=== PATIENT | female | born 1935 | race Caucasian/White ===

== ENCOUNTER 2018-02-15 11:43 | Outpatient (CLI) | payer MEDICARE ==
[~2018-02-15 11:43] MED LIST: Iopamidol 370 76% 100 ML VIAL ONE
--- NOTE | 2018-02-15 14:20 | CT ---
CT ABDOMEN AND PELVIS: 02/15/2018 HISTORY: Right-sided epigastric pain for 1-2 weeks. Nausea and diarrhea with weakness. COMPARISON: None. TECHNIQUE: Serial axial CT imaging at 5 mm intervals, from the lung bases through the pubic symphysis, with IV a nd oral contrast. Coronal reformatted imaging obtained. FINDINGS: The visualized lung bases are unremarkable. No free intraperitoneal air or fluid. The gallbladder i s surgically absent. The liver, spleen, and adrenal glands appear grossly unremarkable. There is a subcentimeter, round, hypodense lesion within the upper abdomen, just to the left of midli ne, measuring 9 mm, too small to characterize. This abuts the posterior wall of the stomach and is i nseparable from the pancreas. This is felt to most likely represent a nonspecific 9 mm low density p ancreatic lesion. The kidneys appear grossly unremarkable. The uterus is surgically absent. There is prominent stool throughout the colon. No evidence for bowel, inflammatory change, or obstru ction. There is atherosclerotic calcification of the abdominal aorta and its branches. There is a small sli ding type hiatal hernia. There is no lymphadenopathy evident within the abdomen/pelvis. There is multilevel lower lumbar spine degenerative change, primarily affecting the facet joints. Th ere is degenerative change involving the bilateral sacroiliac joints. IMPRESSION: 1. Incidentally noted 9-10 mm hypodense lesion within the ventral aspect of the pancreatic body. Th is suggests a small, cystic lesion, which can be seen on the basis of a small cystic neoplasm. Recom mend a follow-up CT examination in three months. 2. No acute findings are seen. Numerous additional incidental findings are noted. CODE T POS: [facility]
== END 2018-02-15 11:44 | disposition home or self-care (01) ==
LOC: CT 11:43
PROVIDERS: ATTEND Family Medicine
DX: R10.9 Unspecified abdominal pain (principal)
CPT/HCPCS: 74177; 82565

== ENCOUNTER 2018-10-23 09:36 | Outpatient (CLI) | payer MEDICARE | END 2018-10-23 09:37 | disposition home or self-care (01) | LOC: BICMAMMO 09:36 | PROVIDERS: ATTEND Family Medicine | DX: Z12.31 Encounter for screening mammogram for malignant neoplasm of breast (principal); Z80.3 Family history of malignant neoplasm of breast | CPT/HCPCS: 77063; 77067 ==

== ENCOUNTER 2018-11-01 14:28 | Outpatient (CLI) | payer MEDICARE | END 2018-11-01 14:29 | disposition home or self-care (01) | LOC: BICMAMMO 14:28 | PROVIDERS: ATTEND Family Medicine | DX: N63.20 Unspecified lump in the left breast, unspecified quadrant (principal); Z80.3 Family history of malignant neoplasm of breast | CPT/HCPCS: 77065; G0279 ==

== ENCOUNTER 2019-02-01 13:13 | Emergency (ER) | payer MEDICARE ==
[2019-02-01 13:38] LABS: #Basophils 0.1 thou/uL (0.0-0.2); #Eosinphils 0.1 thou/uL (0.0-0.7); #Lymphocytes 1.8 thou/uL (1.20-3.40); #Monocytes 0.7 thou/uL (0.11-0.59); #Neutrophils 3.5 thou/uL (1.40-6.50); %Basophils 0.9 % (0.0-1.0); %Eosinophils 1.8 % (0.0-10.0); %Lymphocytes 28.6 % (21.0-51.0); %Monocytes 11.5 % (0.0-10.0); %Neutrophils 57.2 % (42.0-75.0); Hemoglobin 13.4 g/dL (12.0-16.0); Mean Corpuscular HGB CONC 32.9 g/dL (32.0-36.0); Mean Corpuscular Volume 94.3 fL (78.0-98.0); Platelet Count 287 thou/uL (130-400); RBC Distribution Width 11.9 % (11.5-14.5); Red Blood Cell (RBC) Count 4.31 mill/uL (4.20-5.40); White Blood Cell (WBC) Count 6.1 thou/uL (4.8-10.8)
[2019-02-01 13:55] LABS: ALT (SGPT) 19 U/L (8-55); AST (SGOT) 27 U/L (5-34); Albumin 4.5 g/dL (3.4-4.8); Alkaline Phosphatase 46 U/L (40-150); Anion Gap 15 mmol/L (10-20); BUN (Urea Nitrogen) 14 mg/dL (9.8-20.1); Bilirubin, Total 0.3 mg/dL (0.2-1.2); CK (CPK) 142 U/L (29-168); Calc. Creatinine Clearance 0 mL/min (70-130); Carbon Dioxide 22 mmol/L (23-31); Chloride 104 mmol/L (98-107); Estimated GFR-MDRD 58; Glucose 138 mg/dL (83-110); Potassium 4.3 mmol/L (3.5-5.1); Protein, Total 7.5 g/dL (6.0-8.3); Sodium 137 mmol/L (136-145)
--- NOTE | 2019-02-01 14:26 | RAD ---
RADIOGRAPH CHEST 1 VIEW: HISTORY: An 83-year-old female with chest pain. FINDINGS: There are no air space densities, pulmonary edema, pneumothorax, or cardiomegaly. The lateral costop hrenic angles are sharp. IMPRESSION: No acute cardiopulmonary findings. jn [] POS: [facility]
== END 2019-02-01 16:15 | disposition home or self-care (01) ==
LOC: ERS 13:13
DX: R19.7 Diarrhea, unspecified (principal); E03.9 Hypothyroidism, unspecified; I10 Essential (primary) hypertension; Z79.82 Long term (current) use of aspirin; Z79.899 Other long term (current) drug therapy
CPT/HCPCS: 71045; 80053; 82550; 84484; 85025; 93005; 94760

== ENCOUNTER 2019-04-16 09:19 | Outpatient (CLI) | payer MEDICARE ==
[2019-04-16] MEDS ORDERED: ISOVUE-370 76%-LOCM 1 ML ONE (11:44)
--- NOTE | 2019-04-16 12:02 | CT ---
CT ABDOMEN WITH AND WITHOUT IV CONTRAST AND CT PELVIS WITH IV CONTRAST: HISTORY: Pancreatic mass. COMPARISON: 02/15/2018. FINDINGS: The lung bases are clear. The patient is post cholecystectomy, appendectomy, and hysterectomy. The liver, spleen, adrenal glands, and left kidney are normal. There is a tiny calcification in the righ t posterior renal cortex. No hydroureteral nephrosis is seen. The small subcentimeter low-density lesion in the anterior aspect of the body of the pancreas is stab le. No free air, free fluid, or lymphadenopathy is seen. There are vascular calcifications without evide nce of aneurysmal dilatation of the abdominal aorta. Small bowel loops are not abnormally dilated. There are degenerative changes in the spine. IMPRESSION: Stable subcentimeter hypodense lesion in the anterior aspect of the pancreatic body. POS: [facility]
== END 2019-04-16 09:20 | disposition home or self-care (01) ==
LOC: BICCT 09:19
PROVIDERS: ATTEND Family Medicine
DX: K86.9 Disease of pancreas, unspecified (principal)
CPT/HCPCS: 74178; 82565; Q9966

== ENCOUNTER 2019-04-25 13:00 | Outpatient (CLI) | payer MEDICARE ==
--- NOTE | 2019-04-25 14:16 | MMO ---
Left Breast MAMMO Unilat Diag DDI LT+ARNOLD. CLINICAL HISTORY: Patient is 83 years old and is seen for diagnostic exam and lump or thickening in the upper-outer region of the left breast. The patient has the following family history of breast cancer: paternal grandmother. The patient has no personal history of cancer. The patient has a history of right Ultrasound Guided Core Biopsy in November, - benign, left Excisional Biopsy in 2007 - benign and bilateral Cyst Aspiration in [id number] - benign. VIEWS: The views performed were: left craniocaudal with tomosynthesis; left mediolateral oblique with tomosynthesis; and left mediolateral. FILMS COMPARED: The present examination has been compared to prior imaging studies performed at [facility] on 10/12/2017, 10/23/2018, 11/01/2018 and 04/25/2019. MAMMOGRAM FINDINGS: The breast is heterogeneously dense, which could obscure a lesion on mammography. There is an asymmetry seen in the outer region of the left breast. This corresponds to the region of palpable concern. Sonography demonstrates an irregular hypoechoic mass. IMPRESSION: ASYMMETRY IN THE LEFT BREAST IS SUSPICIOUS. AN ULTRASOUND-GUIDED BREAST BIOPSY IS RECOMMENDED. RESULTS AND RECOMMENDATIONS DISCUSSED WITH THE PATIENT AND QUESTIONS ANSWERED. THE RESULTS OF THIS EXAM WERE SENT TO THE PATIENT. ACR BI-RADS Category 4 - Suspicious abnormality - biopsy should be considered MAMMOGRAPHY NOTE: 1. A negative mammogram report should not delay a biopsy if a dominant of clinically suspicious mass is present. 2. Approximately 10% to 15% of breast cancers are not detected by mammography. 3. Adenosis and dense breasts may obscure an underlying neoplasm.
--- NOTE | 2019-04-25 15:58 | ULT ---
LIMITED LEFT BREAST ULTRASOUND: 04/25/19 PROVIDED CLINICAL HISTORY: Left breast palpable abnormality. FINDINGS: Limited sonographic interrogation of the left breast was performed in the region of palpable concern. There is an irregular lobulated hypoechoic mass at the 2 o'clock position of the left breast corres ponding to the area of palpable concern. This measures about 3 x 1.5 x 1.9 cm. A simple appearing cys t is also seen the 2:30 position of the left breast. IMPRESSION: BI-RADS 4: Suspicious Abnormality - Biopsy Should Be Considered Usually requires biopsy. Ultrasound guided biopsy is recommended. Findings and recommendations dis cussed with the patient and questions answered. POS: OFF
--- NOTE | 2019-04-28 08:22 | ULT ---
LIMITED LEFT BREAST ULTRASOUND: Date: 04/25/19 PROVIDED CLINICAL HISTORY: Left breast palpable abnormality. FINDINGS: Limited sonographic interrogation of the left breast was performed in the region of palpable concern. There is an irregular, lobulated, hypoechoic mass at the 2 o'clock position of the left breast, corre sponding to the area of palpable concern. This measures about 3.0 x 1.5 x 1.9 cm. A simple appearing cyst is also seen at the 2:30 position of the left breast. IMPRESSION: BIRADS Category 4 - Suspicious abnormality. Ultrasound guided biopsy is recommended. Findings and recommendations discussed with the patient and questions answered. POS: OFF
== END 2019-04-25 13:01 | disposition home or self-care (01) ==
LOC: BICMAMMO 13:00
PROVIDERS: ATTEND Family Medicine
DX: N63.21 Unspecified lump in the left breast, upper outer quadrant (principal); N64.89 Other specified disorders of breast
CPT/HCPCS: 76642; 77065; G0279

== ENCOUNTER → 2019-05-05 | Day surgery (SDC) | payer MEDICARE ==
--- NOTE | 2019-05-05 14:03 | ULT ---
ULTRASOUND GUIDED LEFT BREAST BIOPSY: DATE: 05/05/2019. PROVIDED CLINICAL HISTORY: Left breast mass. FINDINGS: Limited sonographic interrogation is performed of the left breast in the region of previously demonst rated left breast mass. The skin overlying this area was marked and prepped and raped in the usual s terile manner. The soft tissues were infiltrated with 1% buffered lidocaine. A small skin incision was made. Under continuous sonographic guidance, a core biopsy device was advanced adjacent to the m ass and 4 core samples were obtained. Subsequently, ultrasound guidance was utilized to deploy a bio psy clip marker adjacent to the mass. Coggon were withdrawn and hemostasis achieved. No immediate complications. IMPRESSION: Technically successful ultrasound-guided left breast biopsy. Please correlate with histology results to follow. POS: OFF
--- NOTE | 2019-05-05 15:10 | MMO ---
Left Breast MAMMO Unilat Diag DDI LT. CLINICAL HISTORY: Patient is 83 years old and is seen for diagnostic exam. The patient has the following family history of breast cancer: paternal grandmother. The patient has no personal history of cancer. The patient has a history of right Ultrasound Guided Core Biopsy in November, - benign, left Excisional Biopsy in 2007 - benign and bilateral Cyst Aspiration in [id number] - benign. VIEWS: The views performed were: left craniocaudal and left mediolateral oblique. FILMS COMPARED: The present examination has been compared to prior imaging studies performed at [facility] on 10/23/2018, 11/01/2018 and 04/25/2019. MAMMOGRAM FINDINGS: The breast is heterogeneously dense, which could obscure a lesion on mammography. There is a biopsy clip seen in the left breast. IMPRESSION: BIOPSY CLIP IN THE LEFT BREAST IS CONFIRMED UTILIZING POST PROCEDURE MAMMOGRAM. THE RESULTS OF THIS EXAM WERE SENT TO THE PATIENT. MAMMOGRAPHY NOTE: 1. A negative mammogram report should not delay a biopsy if a dominant of clinically suspicious mass is present. 2. Approximately 10% to 15% of breast cancers are not detected by mammography. 3. Adenosis and dense breasts may obscure an underlying neoplasm.
== END ==
LOC: BICULT 12:25
PROVIDERS: ATTEND Family Medicine
DX: C50.412 Malignant neoplasm of upper-outer quadrant of left female breast (principal)
CPT/HCPCS: 19083; 88305; 88341; 88342; 88361

== ENCOUNTER 2019-05-13 16:25 | Outpatient (CLI) | payer MEDICARE ==
--- NOTE | 2019-05-13 16:43 | RAD ---
EXAM: Chest PA and lateral: HISTORY: Malignant neoplasm of left breast. COMPARISON: 02/01/2019 FINDINGS: Heart: Normal cardiac silhouette Aorta: Atherosclerosis of the aortic knob Pulmonary vessels: Normal Costophrenic angles: Costophrenic angles are clear. Lungs: No consolidation or masses. Right changes of the lung parenchyma are noted. Pneumothorax: No pneumothorax Osseous structures: No osseous abnormalities IMPRESSION: No acute cardiopulmonary process. Atherosclerosis of the aorta.
== END 2019-05-13 16:26 | disposition home or self-care (01) ==
LOC: BICRAD 16:25
PROVIDERS: ATTEND Internal Medicine Medical Oncology
DX: C50.412 Malignant neoplasm of upper-outer quadrant of left female breast (principal); I70.0 Atherosclerosis of aorta
CPT/HCPCS: 71046; 80053; 82248; 83615; 84100; 84550; 85610

== ENCOUNTER 2019-05-22 09:19 | Outpatient (CLI) | payer MEDICARE ==
--- NOTE | 2019-05-22 10:26 | BD ---
DEXA BONE DENSITY STUDY: Date: 05/22/19 HISTORY: Thrombophilia. Osteoporosis screening. COMPARISON: None. FINDINGS: Lumbar Spine: BMD (g/cm2) L1 0.948 T-Score: -0.4 Z-Score: 2.1 L2 1.084 T-Score: 0.5 Z-Score: 3.3 L3 1.139 T-Score: 0.5 Z-Score: 3.4 L4 1.189 T-Score: 1.2 Z-Score: 4.2 L1-L4 1.089 T-Score: 0.4 Z-Score: 3.2 WHO Classification: Normal. Left Femoral Neck: 0.920 T-Score: 0.6 Z-Score: 3.1 Total Femur: 1.094 T-Score: 1.2 Z-Score: 3.5 WHO Classification: Normal. IMPRESSION: Normal bone mineral density. POS: CET
== END 2019-05-22 09:20 | disposition home or self-care (01) ==
LOC: BICMAMMO 09:19
PROVIDERS: ATTEND Internal Medicine Medical Oncology
DX: Z13.820 Encounter for screening for osteoporosis (principal); C50.919 Malignant neoplasm of unspecified site of unspecified female breast; D68.69 Other thrombophilia
CPT/HCPCS: 77080

== ENCOUNTER 2019-08-07 07:22 | Outpatient (CLI) | payer MEDICARE ==
--- NOTE | 2019-08-07 10:12 | MRI ---
BRAIN MRI WITH AND WITHOUT CONTRAST: DATE: 08/07/2019. COMPARISON: None. HISTORY: Double vision, history of breast cancer. TECHNIQUE: Multiplanar, multisequence MR imaging of the brain obtained with and without contrast. The study is performed using an orbits protocol. FINDINGS: The diffusion weighted imaging demonstrates no evidence for acute infarction. The imaged paranasal sinuses and mastoid air cells are well aerated. There are multiple subcentimete r foci of increased T2 and FLAIR signal within the periventricular deep and subcortical white matter, evidence of small vessel disease. There is normal symmetric signal intensity involving the optic nerves, the intraconal fat, and the ex traocular muscles bilaterally. The globes demonstrate symmetric normal structure, size, and signal i ntensity. There is no midline shift, mass effect, or ventricular enlargement. Regional bone marrow signal intensity is normal. The whole brain postcontrast imaging demonstrates no abnormal enhancement. Thin section fat saturated postcontrast imaging is obtained through the orbits in the axial and coron al plane. There is no abnormal enhancement involving the globes, optic nerves, extraocular musculatu re, or intraconal fat on either side. No mass lesion/mass effect is seen. IMPRESSION: No acute findings. Incidental findings as detailed above. POS: [facility]
== END 2019-08-07 07:23 | disposition home or self-care (01) ==
LOC: BICMRI 07:22
PROVIDERS: ATTEND Ophthalmology
DX: H53.2 Diplopia (principal)
CPT/HCPCS: 70553; 82565

== ENCOUNTER 2019-08-28 08:26 | Outpatient (CLI) | payer MEDICARE ==
--- NOTE | 2019-08-28 11:45 | ULT ---
ULTRASOUND RIGHT BREAST: HISTORY: Palpable pain. COMPARISON: Mammogram of same date. FINDINGS: There is no abnormality at the area of interest in the right breast. There is normal suspensory liga ment. IMPRESSION: BIRADS 2: Benign findings. POS: OFF
== END 2019-08-28 08:27 | disposition home or self-care (01) ==
LOC: BICMAMMO 08:26
PROVIDERS: ATTEND Family Medicine
DX: N63.10 Unspecified lump in the right breast, unspecified quadrant (principal)
CPT/HCPCS: 76642; 77065; G0279

== ENCOUNTER 2019-09-09 06:44 | Day surgery (SDC) | payer MEDICARE ==
[2019-09-08 12:56] VITALS: BMI 27.8
--- NOTE | 2019-09-09 08:12 | RAD ---
RADIOGRAPH CHEST 1 VIEW: DATE: 09/09/2019 HISTORY: 84-year-old female with chest pain FINDINGS: There are no airspace densities, pulmonary edema, pneumothorax, or cardiomegaly. The lateral costophr enic angles are sharp. IMPRESSION: No acute cardiopulmonary findings.
[2019-09-09] MEDS ORDERED: Ketorolac Tromethamine 30 MG/ML VIAL ONE (08:27)
[2019-09-09 08:28] LABS: #Basophils 0.1 thou/uL (0.0-0.2); #Eosinphils 0.2 thou/uL (0.0-0.7); #Lymphocytes 1.9 thou/uL (1.20-3.40); #Monocytes 0.8 thou/uL (0.11-0.59); %Basophils 1.1 % (0.0-1.0); %Eosinophils 3.6 % (0.0-10.0); %Lymphocytes 31.9 % (21.0-51.0); %Monocytes 13.2 % (0.0-10.0); %Neutrophils 50.2 % (42.0-75.0); Hemoglobin 13.4 g/dL (12.0-16.0); Mean Corpuscular HGB CONC 34.3 g/dL (32.0-36.0); Mean Corpuscular Hemoglobin 31.5 pg (27.0-31.0); Mean Corpuscular Volume 91.7 fL (78.0-98.0); Mean Platelet Volume 7.1 fL (7.4-10.4); Platelet Count 306 thou/uL (130-400); RBC Distribution Width 12.1 % (11.5-14.5); Red Blood Cell (RBC) Count 4.26 mill/uL (4.20-5.40); White Blood Cell (WBC) Count 5.9 thou/uL (4.8-10.8)
[2019-09-09 08:38] LABS: Anion Gap 14 mmol/L (10-20); BUN (Urea Nitrogen) 14 mg/dL (9.8-20.1); Calc. Creatinine Clearance 47 mL/min (70-130); Calcium 10.2 mg/dL (7.8-10.44); Carbon Dioxide 24 mmol/L (23-31); Chloride 105 mmol/L (98-107); Estimated GFR-MDRD 57; Glucose 114 mg/dL (83-110); Potassium 4.1 mmol/L (3.5-5.1); Sodium 139 mmol/L (136-145)
--- NOTE | 2019-09-09 09:17 | MMO ---
Mammographic guided needle localization left breast cancer HISTORY: Left breast cancer. FINDINGS: After explaining the procedure and answering all questions, the localization clip from rece nt biopsy was visualized. Sterile technique, buffered local anesthesia, mammographic guidance, and a superior approach were used to advance a 19-gauge [place] needle to lie immediately posterior to the localization clip. Guidewire was placed to hold position. Final images were obtained. Patient tolerated the procedure well and was transferred to day surgery in good condition. IMPRESSION: Technically successful mammographic guided biopsy left breast cancer.
[2019-09-09] MEDS ORDERED: Bupivacaine/Epinephrine 0.25% 30 ML VIAL ONE ×2 (09:31)
[2019-09-09] MEDS ORDERED: Fentanyl 100 MCG/2 ML VIAL ONE (09:44)
--- NOTE | 2019-09-09 11:11 | MMO ---
Surgical specimen mammography left breast HISTORY: Left breast cancer. FINDINGS: Mammographic evaluation of the surgical specimen obtained by Dr. Camacho shows the localiza tion clip, a portion of the localization wire, and the hyperdense mass. Vascular and punctate calcifications are also present. Findings were called to Dr. Camacho in the operating room at time of the exam.
[2019-09-09] MEDS ORDERED: Morphine 2 MG/ML SYRINGE SLOW IVP PRN (11:54)
[2019-09-09] MEDS ORDERED: hydrALAZINE 20 MG/ML VIAL SLOW IVP PRN (11:54)
[2019-09-09] MEDS ORDERED: HYDROcodone/Acetaminophen 7.5/325 mg Tablet PO PRN ×2 (11:54)
[2019-09-09] MEDS ORDERED: Dextrose 50% Abboject 50 ML SYRINGE SLOW IVP PRN (11:54)
[2019-09-09] MEDS ORDERED: Promethazine HCl 25 MG/ML VIAL IM PRN (11:54)
[2019-09-09] MEDS ORDERED: Dextrose 5% in Water 1,000 ML IV PRN (11:54)
[2019-09-09] MEDS ORDERED: Ondansetron PF 4 MG/2 ML Vial IVP PRN (11:54)
[2019-09-09] MEDS ORDERED: Lactated Ringer's 1,000 ML IV SCH (12:00)
[2019-09-09] MEDS ORDERED: cloNIDine 0.1 MG TAB PO SCH (21:00)
[2019-09-10] MEDS ORDERED: Levothyroxine Sodium 100 MCG TAB PO SCH (06:00)
[2019-09-10] MEDS ORDERED: Potassium Chloride 20 MEQ TAB PO SCH (09:00)
[2019-09-10] MEDS ORDERED: Anastrozole 1 MG TAB PO SCH (09:00)
[2019-09-10] MEDS ORDERED: Famotidine 20 MG TAB PO SCH (09:00)
[2019-09-10] MEDS ORDERED: Aspirin 81 mg Enteric Coated Tablet PO SCH (09:00)
--- NOTE | 2019-09-10 09:58 | OP ---
DATE OF PROCEDURE: 09/09/2019 PREOPERATIVE DIAGNOSIS: Left breast cancer. POSTOPERATIVE DIAGNOSIS: Left breast cancer. PROCEDURES PERFORMED: Left breast lumpectomy and axillary lymph node dissection. ANESTHESIA: General endotracheal. INDICATIONS: The patient is an 84-year-old white female. She had presented a few months ago with breast cancer in the lateral left breast at approximately the 9 o'clock radian. She had several enlarged lymph nodes identified at the time of her diagnosis. She underwent neoadjuvant therapy with Arimidex. She had significant resolution of the cancer within the left breast. The lymph nodes were much smaller, but still somewhat enlarged. She was taken to the operating room at this time for definitive surgery. She has opted for a lumpectomy, which I think could be safely performed. I was concerned that the area visualized on ultrasound may not completely represent that of the prior cancer and I therefore decided to have mammographic needle localization performed. I recommend an axillary node dissection as there were still several enlarged lymph nodes seen on ultrasound. DESCRIPTION OF OPERATION: Informed consent was obtained. The patient was taken to the operating room where general endotracheal anesthesia obtained with the patient in supine position. Left breast and axilla were prepped with ChloraPrep and draped in sterile fashion. The localizing needle entered the lateral left breast in a superior to inferior fashion passing through the area of approximately the 3 o'clock radian. I utilized ultrasound to miranda the path of the localizing needle as well as the area of the sonographic abnormality that I could still see. Utilizing this, I planned the incision and area of excision. A transverse incision was created in the left breast just above the 3 o'clock radian. Dissection was carried through skin and subcutaneous tissue. I first dissected superiorly to identify the localizing needle. The needle was removed and the wire was replaced to the incision. I dissected along the wire to the point that it was about 3.5 cm from the tip of the wire. At this juncture, I grasped the breast tissue with a couple of Allis clamps and carefully performed a wide excision around the localizing wire, obtaining substantial specimen both laterally and medially along the area of the previous malignancy. There was no evidence of visible or palpable disease at the at the margins of excision. The specimen was removed intact and oriented with sutures and passed off the field. By palpation, there was 1 additional nodule in the posterior margin. This was excised and submitted separately. Meticulous hemostasis was obtained within the wound. It was closed in layers with 3-0 and 4-0 Monocryl. Additional local anesthetic was infiltrated during closure. Attention was then turned to the axilla. A transverse axillary incision was created. Dissection was carried through skin and subcutaneous tissue. Flaps were again raised superiorly and inferiorly. Along the anterior aspect, I then dissected down the pectoralis muscle. I dissected superiorly along the lateral aspect of the pectoralis to identify the axillary vein. Along the inferior aspect of the axillary vein, careful dissection was carried out to identify the long thoracic nerve medially and the thoracodorsal nerve in the center. These were each identified and carefully preserved throughout the operation. The fatty and lymphatic tissue within the axilla were then swept inferiorly, dividing lymphatics as they were encountered using hemoclips. The axillary specimen was swept inferiorly and removed intact. Most of the dissection was carried out with sharp dissection, but electrocautery was utilized as well. The wound was copiously irrigated. Hemostasis was meticulously achieved. A #19 round fluted drain was placed up within the axilla and secured using 3-0 nylon suture. The wound was closed in layers with 3-0 and 4-0 Monocryl suture. Dermabond was placed externally. There were no complications. The patient tolerated the procedure well and was taken to recovery room in stable condition. Job ID: [id number]
== END 2019-09-09 16:25 | disposition home or self-care (01) ==
LOC: SDC 06:44
PROVIDERS: ATTEND Specialist
PROC: 0HBU0ZZ Excision of Left Breast, Open Approach (ICD-10-PCS; principal; 2019-09-09)
PROC: 07T60ZZ Resection of Left Axillary Lymphatic, Open Approach (ICD-10-PCS; 2019-09-09)
DX: C50.812 Malignant neoplasm of overlapping sites of left female breast (principal); R92.1 Mammographic calcification found on diagnostic imaging of breast; Z17.0 Estrogen receptor positive status [ER+]; Z79.82 Long term (current) use of aspirin; Z79.899 Other long term (current) drug therapy
CPT/HCPCS: 19281; 36415; 71045; 76098; 80048; 85025; 88307; 93005; 93010; J0131; J0690; J1885; J3010

== ENCOUNTER 2020-02-01 09:56 | Emergency (ER) | payer MEDICARE ==
[2020-02-01] MEDS ORDERED: Fentanyl 100 MCG/2 ML VIAL ONE (10:35)
[2020-02-01] MEDS ORDERED: Fleet Enema 133 ML BOT FS SCH (11:30)
== END 2020-02-01 12:54 | disposition home or self-care (01) ==
LOC: ERS 09:56
DX: K56.41 Fecal impaction (principal); E03.9 Hypothyroidism, unspecified; I10 Essential (primary) hypertension; F32.9 Major depressive disorder, single episode, unspecified; Z79.82 Long term (current) use of aspirin; Z79.899 Other long term (current) drug therapy
CPT/HCPCS: 96374; J3010

== ENCOUNTER 2020-10-14 07:57 | Outpatient (CLI) | payer MEDICARE ==
--- NOTE | 2020-10-14 08:46 | MMO ---
Bilateral MAMMO Bilat Diag DDI+ARNOLD. CLINICAL HISTORY: Patient is 85 years old and is seen for diagnostic exam. The patient has the following family history of breast cancer: paternal grandmother. 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 The patient has a history of left Ultrasound Guided Core Biopsy in April, - malignant, left Excisional Biopsy in April, - malignant, right Ultrasound Guided Core Biopsy in November, - benign, left Excisional Biopsy in 2007 - benign and bilateral Cyst Aspiration in [id number] - benign. VIEWS: The views performed were: bilateral craniocaudal with tomosynthesis; bilateral mediolateral oblique with tomosynthesis; bilateral mediolateral with tomosynthesis; and right exaggerated craniocaudal. FILMS COMPARED: The present examination has been compared to prior imaging studies performed at [facility] on 05/05/2019 and 08/28/2019. This study has been interpreted with the assistance of computer-aided detection. MAMMOGRAM FINDINGS: The breasts are heterogeneously dense, which could obscure a lesion on mammography. Finding 1: There is a new area of skin thickening and a new post operative change seen in the left breast. Finding 2: There are stable benign appearing calcifications seen in both breasts. There are also vascular calcifications. There are no suspicious masses, suspicious calcifications, or new areas of architectural distortion. IMPRESSION: THERE IS NO MAMMOGRAPHIC EVIDENCE OF MALIGNANCY. A ROUTINE FOLLOW-UP MAMMOGRAM IN 1 YEAR IS RECOMMENDED. THE RESULTS OF THIS EXAM WERE SENT TO THE PATIENT. ACR BI-RADS Category 2 - Benign finding MAMMOGRAPHY NOTE: 1. A negative mammogram report should not delay a biopsy if a dominant of clinically suspicious mass is present. 2. Approximately 10% to 15% of breast cancers are not detected by mammography. 3. Adenosis and dense breasts may obscure an underlying neoplasm. Reported by: OTIS LYONS MD Electonically Signed: [id number]
--- NOTE | 2020-10-14 10:42 | BD ---
DEXA SCAN: INDICATION: Postmenopausal osteoporosis screening. FINDINGS: Lumbar Spine: BMD (g/cm2) L1 0.910 T-Score: -0.7 Z-Score: not provided L2 1.071 T-Score: 0.4 Z-Score: not provided L3 1.260 T-Score: 1.6 Z-Score: not provided L4 1.047 T-Score: -0.1 Z-Score: not provided L1-L4 1.076 T-Score: 0.3 Z-Score: not provided Femoral Neck: 0.883 T-Score: 0.3 Z-Score: not provided Total Femur: 1.077 T-Score: 1.1 Z-Score: not provided The bone mineral density has declined 1.2% from the baseline dated 05/22/2019; however, they were diss imilar scan types. Impression: Based on the WHO criteria, the patient's bone mineral density is within normal limits. The patient i s at low risk for fracture. POS: [facility]
== END 2020-10-14 07:58 | disposition home or self-care (01) ==
LOC: BICMAMMO 07:57
PROVIDERS: ATTEND Internal Medicine Medical Oncology
DX: Z13.820 Encounter for screening for osteoporosis (principal); C50.412 Malignant neoplasm of upper-outer quadrant of left female breast; N95.8 Other specified menopausal and perimenopausal disorders
CPT/HCPCS: 77066; 77080; G0279

== ENCOUNTER 2021-01-04 09:56 | Outpatient (CLI) | payer MEDICARE ==
--- NOTE | 2021-01-04 10:39 | MMO ---
Right Breast MAMMO Unilat Diag DDI RT+ARNOLD. CLINICAL HISTORY: Patient is 85 years old and is seen for diagnostic exam. The patient has the following family history of breast cancer: paternal grandmother. 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 The patient has a history of left Ultrasound Guided Core Biopsy in April, - malignant, left Excisional Biopsy in April, - malignant, right Ultrasound Guided Core Biopsy in November, - benign, left Excisional Biopsy in 2007 - benign and bilateral Cyst Aspiration in [id number] - benign. VIEWS: The views performed were: right craniocaudal with tomosynthesis; right mediolateral oblique with tomosynthesis; and right mediolateral with tomosynthesis. FILMS COMPARED: The present examination has been compared to prior imaging studies performed at [facility] on 08/28/2019, 10/14/2020 and 01/04/2021. This study has been interpreted with the assistance of computer-aided detection. MAMMOGRAM FINDINGS: The breast is heterogeneously dense, which could obscure a lesion on mammography. There are benign appearing calcifications in the right breast. No mammographic or sonograhic abnormality is seen at the site of palpable concern in the right breast (5:00). There are no suspicious masses, suspicious calcifications, or new areas of architectural distortion. IMPRESSION: THERE IS NO MAMMOGRAPHIC EVIDENCE OF MALIGNANCY. A ROUTINE FOLLOW-UP MAMMOGRAM IN 1 YEAR IS RECOMMENDED. THE RESULTS OF THIS EXAM WERE SENT TO THE PATIENT. ACR BI-RADS Category 2 - Benign finding MAMMOGRAPHY NOTE: 1. A negative mammogram report should not delay a biopsy if a dominant of clinically suspicious mass is present. 2. Approximately 10% to 15% of breast cancers are not detected by mammography. 3. Adenosis and dense breasts may obscure an underlying neoplasm. Reported by: KAT ALEGRIA MD Electonically Signed: [id number]
--- NOTE | 2021-01-04 12:33 | ULT ---
RIGHT BREAST ULTRASOUND: HISTORY: Palpable abnormality at the 5 o'clock position of the right breast. The patient has a history of lef t-sided breast cancer. FINDINGS: Sonographic evaluation at the region of palpable concern demonstrates no abnormality at the 5 o'clock position, 6 cm from the nipple (site of palpable concern). Correlation was made with the mammogram of the same day. IMPRESSION: BIRADS 2. Benign findings. Routine mammographic screening is recommended. POS: OFF
== END 2021-01-04 09:57 | disposition home or self-care (01) ==
LOC: BICMAMMO 09:56
PROVIDERS: ATTEND Family Medicine
DX: N63.10 Unspecified lump in the right breast, unspecified quadrant (principal); R92.8 Other abnormal and inconclusive findings on diagnostic imaging of breast
CPT/HCPCS: 76642; 77065; G0279

== ENCOUNTER 2021-10-17 08:06 | Outpatient (CLI) | payer MEDICARE | END 2021-10-17 08:07 | disposition home or self-care (01) | LOC: BICMAMMO 08:06 | PROVIDERS: ATTEND Internal Medicine Medical Oncology | DX: Z13.820 Encounter for screening for osteoporosis (principal); Z85.3 Personal history of malignant neoplasm of breast; Z80.3 Family history of malignant neoplasm of breast | CPT/HCPCS: 77066; 77080; G0279 ==

== ENCOUNTER 2022-08-20 10:13 | Inpatient (IN) | payer MEDICARE ==
[~2022-08-20 10:13] MED LIST changes: -Iopamidol 370 76% 100 ML VIAL ONE; +Iopamidol-370 76% 500 ML 1 ML ONE
[2022-08-20] MEDS ORDERED: Diltiazem 125 MG/25 ML ONE (10:39)
[2022-08-20] MEDS ORDERED: Aspirin Chewable 81 MG TAB ONE (10:39)
[2022-08-20] MEDS ORDERED: Magnesium 2 GM/50 ML BAG (IN WATER) ONE (10:39)
[2022-08-20 10:57] LABS: #Basophils 0.1 thou/uL (0.0-0.2); #Eosinphils 0.4 thou/uL (0.0-0.7); #Lymphocytes 1.7 thou/uL (1.20-3.40); #Neutrophils 4.5 thou/uL (1.40-6.50); %Basophils 0.9 % (0.0-1.0); %Eosinophils 4.7 % (0.0-10.0); %Lymphocytes 22.4 % (21.0-51.0); %Monocytes 12.9 % (0.0-10.0); Hemoglobin 13.9 g/dL (12.0-16.0); Mean Corpuscular Hemoglobin 30.5 pg (27.0-31.0); Mean Corpuscular Volume 92.4 fL (78.0-98.0); Mean Platelet Volume 6.7 fL (7.4-10.4); Platelet Count 304 thou/uL (130-400); Red Blood Cell (RBC) Count 4.56 mill/uL (4.20-5.40); White Blood Cell (WBC) Count 7.6 thou/uL (4.8-10.8)
[2022-08-20 11:19] LABS: ALT (SGPT) 18 U/L (8-55); AST (SGOT) 34 U/L (5-34); Albumin 4.4 g/dL (3.4-4.8); Alkaline Phosphatase 54 U/L (40-110); Anion Gap 16 mmol/L (10-20); BUN (Urea Nitrogen) 18 mg/dL (9.8-20.1); Bilirubin, Total 0.4 mg/dL (0.2-1.2); CK (CPK) 184 U/L (29-168); Calc. Creatinine Clearance 0 mL/min (70-130); Calcium 10.2 mg/dL (7.8-10.44); Carbon Dioxide 24 mmol/L (23-31); Chloride 102 mmol/L (98-107); Estimated GFR 57; Globulin 3.3 g/dL (2.4-3.5); Glucose 127 mg/dL (83-110); Lipase 31 U/L (8-78); Potassium 4.5 mmol/L (3.5-5.1); Protein, Total 7.7 g/dL (5.8-8.1); Sodium 137 mmol/L (136-145)
[2022-08-20] MEDS ORDERED: Enoxaparin Sodium 60 MG/0.6 ML SYRINGE ONE (13:13)
[2022-08-20 13:28] LABS: Bilirubin Negative (Negative); Blood, Urine Negative (Negative); Clarity Clear (Clear); Glucose, Urine (Dipstick) Normal (Negative); Ketone, Urine Trace mg/dL (Negative); Leukocyte Negative Leu/uL (Negative); Nitrite Negative (Negative); Protein, Urine (Dipstick) Negative (Neg-Trace); Specific Gravity, Urine 1.017 (1.002-1.036); Urobilinogen Normal mg/dL (Less than 2)
[2022-08-20 13:55] LABS: Hemoglobin A1c 5.8 % (4.0-6.0)
[2022-08-20 14:07] LABS: Magnesium 2.6 mg/dL (1.6-2.6)
[2022-08-20 14:13] LABS: Troponin I Less than 0.010 ng/mL (< 0.028)
[2022-08-20] MEDS ORDERED: Ondansetron ODT 4 MG TAB SL PRN (15:15)
[2022-08-20] MEDS ORDERED: Ondansetron PF 4 MG/2 ML Vial IVP PRN (15:15)
[2022-08-20 15:29] VITALS: BMI 27.1
[2022-08-20 17:30] LABS: Troponin I Less than 0.010 ng/mL (< 0.028)
[2022-08-20] MEDS: Potassium Chloride 20 MEQ TAB PO SCH ×2 (17:38→20:55)
[2022-08-20] MEDS: Famotidine 20 MG TAB PO SCH (20:18)
[2022-08-20] MEDS: Losartan 25 MG TAB PO SCH (20:18)
[2022-08-20] MEDS: hydrALAZINE 20 MG/ML VIAL SLOW IVP PRN (20:18)
[2022-08-20] MEDS: Calcium Carbonate 600 MG TAB PO SCH (20:18)
[2022-08-20] MEDS: Acetaminophen 325 MG TAB PO PRN (20:24)
[2022-08-20] MEDS ORDERED: cloNIDine 0.1 MG TAB PO SCH (21:00)
[2022-08-20] MEDS ORDERED: Amiodarone 150 MG, Admixture Fee 1 EACH in Dextrose 5% in Water 100 ML IVPB SCH (22:30)
[2022-08-20] MEDS ORDERED: Amiodarone 450 MG in Dextrose 5% in Water 250 ML IVPB SCH (22:45)
[2022-08-20] MEDS ORDERED: Lactated Ringer's 500 ML IV SCH (23:00)
[2022-08-20] MEDS ORDERED: Diltiazem HCl 125 MG, Admixture Fee 1 EACH in Sodium Chloride 0.9% 100 ML IVPB SCH ×2 (23:00→23:30)
[2022-08-20] MEDS ORDERED: Melatonin 3 MG TAB PO SCH (23:00)
[2022-08-20] MEDS: Latanoprost 0.005% Ophth Soln 2.5 ml Bottle EA EYE SCH (23:44)
[2022-08-21 04:50] LABS: #Eosinphils 0.1 thou/uL (0.0-0.7); #Lymphocytes 1.4 thou/uL (1.20-3.40); #Monocytes 1.2 thou/uL (0.11-0.59); #Neutrophils 6.2 thou/uL (1.40-6.50); %Basophils 0.5 % (0.0-1.0); %Eosinophils 1.4 % (0.0-10.0); %Lymphocytes 15.3 % (21.0-51.0); %Monocytes 13.2 % (0.0-10.0); %Neutrophils 69.5 % (42.0-75.0); Hemoglobin 13.3 g/dL (12.0-16.0); Mean Corpuscular Hemoglobin 30.6 pg (27.0-31.0); Mean Corpuscular Volume 92.7 fL (78.0-98.0); Mean Platelet Volume 6.5 fL (7.4-10.4); Platelet Count 312 thou/uL (130-400); RBC Distribution Width 12.1 % (11.5-14.5); Red Blood Cell (RBC) Count 4.34 mill/uL (4.20-5.40); White Blood Cell (WBC) Count 8.9 thou/uL (4.8-10.8)
[2022-08-21 05:15] LABS: Anion Gap 12 mmol/L (10-20); BUN (Urea Nitrogen) 14 mg/dL (9.8-20.1); Calc. Creatinine Clearance 530 mL/min (70-130); Calcium 9.8 mg/dL (7.8-10.44); Carbon Dioxide 23 mmol/L (23-31); Cardiac Risk 2.6 (Less than 4.5); Chloride 107 mmol/L (98-107); Cholesterol 183 mg/dl (< 200 Desired); Estimated GFR 72; Glucose 116 mg/dL (83-110); HDL Cholesterol 71 mg/dL (>60 Neg Risk); LDL Cholesterol, Calculated 97 mg/dL; Potassium 4.1 mmol/L (3.5-5.1); Sodium 138 mmol/L (136-145); Triglycerides 73 mg/dL (Less than 150)
[2022-08-21] MEDS: Levothyroxine Sodium 100 MCG TAB PO SCH (05:48)
[2022-08-21] MEDS ORDERED: Enoxaparin Sodium 40 MG/0.4 ML SYRINGE SC SCH (09:00)
[2022-08-21] MEDS: Potassium Chloride 20 MEQ TAB PO SCH ×4 (09:04→20:42)
[2022-08-21] MEDS: Cyanocobalamin (Vitamin B-12) 1,000 MCG TAB PO SCH (09:04)
[2022-08-21] MEDS: Calcium Carbonate 600 MG TAB PO SCH ×2 (09:04→20:42)
[2022-08-21] MEDS: Aspirin 81 mg Enteric Coated Tablet PO SCH (09:05)
[2022-08-21] MEDS: cloNIDine 0.1 MG TAB PO SCH (09:05)
[2022-08-21] MEDS: Folic Acid 1 MG TAB PO SCH (09:05)
[2022-08-21] MEDS: Anastrozole 1 MG TAB PO SCH (09:06)
[2022-08-21] MEDS: Multivit, Therapeutic 1 TAB PO SCH (09:06)
[2022-08-21] MEDS ORDERED: Melatonin 3 MG TAB PO PRN (20:00)
[2022-08-21] MEDS: Losartan 25 MG TAB PO SCH (20:42)
[2022-08-21] MEDS: Famotidine 20 MG TAB PO SCH (20:43)
[2022-08-21] MEDS: Latanoprost 0.005% Ophth Soln 2.5 ml Bottle EA EYE SCH (22:24)
[2022-08-22 04:05] LABS: #Basophils 0.1 thou/uL (0.0-0.2); #Eosinphils 0.3 thou/uL (0.0-0.7); #Lymphocytes 1.7 thou/uL (1.20-3.40); #Monocytes 0.9 thou/uL (0.11-0.59); #Neutrophils 3.5 thou/uL (1.40-6.50); %Basophils 0.9 % (0.0-1.0); %Eosinophils 4.9 % (0.0-10.0); %Lymphocytes 26.6 % (21.0-51.0); %Monocytes 13.6 % (0.0-10.0); Hemoglobin 12.7 g/dL (12.0-16.0); Mean Corpuscular HGB CONC 32.4 g/dL (32.0-36.0); Mean Corpuscular Hemoglobin 30.3 pg (27.0-31.0); Mean Corpuscular Volume 93.5 fL (78.0-98.0); Mean Platelet Volume 6.8 fL (7.4-10.4); Platelet Count 295 thou/uL (130-400); RBC Distribution Width 12.1 % (11.5-14.5); Red Blood Cell (RBC) Count 4.21 mill/uL (4.20-5.40); White Blood Cell (WBC) Count 6.5 thou/uL (4.8-10.8)
[2022-08-22 04:21] LABS: Anion Gap 12 mmol/L (10-20); BUN (Urea Nitrogen) 16 mg/dL (9.8-20.1); Calc. Creatinine Clearance 56 mL/min (70-130); Calcium 9.8 mg/dL (7.8-10.44); Carbon Dioxide 23 mmol/L (23-31); Chloride 107 mmol/L (98-107); Estimated GFR 77; Glucose 111 mg/dL (83-110); Potassium 4.1 mmol/L (3.5-5.1); Sodium 138 mmol/L (136-145)
[2022-08-22] MEDS: hydrALAZINE 20 MG/ML VIAL SLOW IVP PRN ×2 (05:33→23:52)
[2022-08-22] MEDS: Levothyroxine Sodium 100 MCG TAB PO SCH (05:33)
[2022-08-22] MEDS ORDERED: Iopamidol 370 76% 50 ML VIAL FS ONE (09:05)
[2022-08-22] MEDS: Aspirin 81 mg Enteric Coated Tablet PO SCH (09:30)
[2022-08-22] MEDS: cloNIDine 0.1 MG TAB PO SCH (09:30)
[2022-08-22] MEDS: Anastrozole 1 MG TAB PO SCH (09:30)
[2022-08-22] MEDS: Folic Acid 1 MG TAB PO SCH (10:10)
[2022-08-22] MEDS: Multivit, Therapeutic 1 TAB PO SCH (10:10)
[2022-08-22] MEDS: Cyanocobalamin (Vitamin B-12) 1,000 MCG TAB PO SCH (10:10)
[2022-08-22] MEDS: Calcium Carbonate 600 MG TAB PO SCH ×2 (10:10→20:02)
[2022-08-22] MEDS: Potassium Chloride 20 MEQ TAB PO SCH ×4 (10:11→20:02)
[2022-08-22] MEDS ORDERED: Lidocaine 1% 50ML VIAL ONE (11:04)
[2022-08-22] MEDS ORDERED: Heparin 10,000 UNITS/ 10 ML VIAL ONE (11:04)
[2022-08-22] MEDS ORDERED: Propofol 1,000 MG/100 ML VIAL IV ONE (11:08)
[2022-08-22] MEDS ORDERED: fentaNYL Citrate/PF 100 MCG/2 ML SYRINGE ONE (11:09)
[2022-08-22] MEDS ORDERED: Phenylephrine 10 MG/ML VIAL ONE (11:17)
[2022-08-22] MEDS ORDERED: PROPOFOL 200 MG/20 ML VIAL ONE (11:17)
[2022-08-22] MEDS ORDERED: ePHEDrine 50 MG/ML VIAL ONE (11:17)
[2022-08-22] MEDS ORDERED: CEFAZOLIN 1 GM VIAL ONE ×2 (12:12→14:53)
[2022-08-22] MEDS ORDERED: Gentamicin 80 MG/2 ML VIAL ONE (12:12)
[2022-08-22] MEDS: Latanoprost 0.005% Ophth Soln 2.5 ml Bottle EA EYE SCH (20:02)
[2022-08-22] MEDS: Famotidine 20 MG TAB PO SCH (20:02)
[2022-08-22] MEDS: Losartan 25 MG TAB PO SCH (20:02)
[2022-08-23 04:26] LABS: #Basophils 0.1 thou/uL (0.0-0.2); #Eosinphils 0.1 thou/uL (0.0-0.7); #Lymphocytes 0.8 thou/uL (1.20-3.40); #Monocytes 1.3 thou/uL (0.11-0.59); #Neutrophils 8.8 thou/uL (1.40-6.50); %Basophils 0.6 % (0.0-1.0); %Eosinophils 0.9 % (0.0-10.0); %Lymphocytes 7.5 % (21.0-51.0); %Monocytes 11.9 % (0.0-10.0); %Neutrophils 79.2 % (42.0-75.0); Hemoglobin 13.7 g/dL (12.0-16.0); Mean Corpuscular HGB CONC 32.4 g/dL (32.0-36.0); Mean Corpuscular Hemoglobin 30.1 pg (27.0-31.0); Mean Corpuscular Volume 92.7 fL (78.0-98.0); Mean Platelet Volume 6.7 fL (7.4-10.4); Platelet Count 288 thou/uL (130-400); Red Blood Cell (RBC) Count 4.56 mill/uL (4.20-5.40); White Blood Cell (WBC) Count 11.1 thou/uL (4.8-10.8)
[2022-08-23 04:37] LABS: Anion Gap 15 mmol/L (10-20); BUN (Urea Nitrogen) 15 mg/dL (9.8-20.1); Calc. Creatinine Clearance 52 mL/min (70-130); Calcium 10.8 mg/dL (7.8-10.44); Carbon Dioxide 22 mmol/L (23-31); Chloride 104 mmol/L (98-107); Estimated GFR 72; Glucose 135 mg/dL (83-110); Potassium 4.2 mmol/L (3.5-5.1); Sodium 137 mmol/L (136-145)
[2022-08-23] MEDS: Levothyroxine Sodium 100 MCG TAB PO SCH (05:50)
[2022-08-23] MEDS: Multivit, Therapeutic 1 TAB PO SCH (08:56)
[2022-08-23] MEDS: Aspirin 81 mg Enteric Coated Tablet PO SCH (08:56)
[2022-08-23] MEDS: Folic Acid 1 MG TAB PO SCH (08:56)
[2022-08-23] MEDS: cloNIDine 0.1 MG TAB PO SCH (08:56)
[2022-08-23] MEDS: Calcium Carbonate 600 MG TAB PO SCH ×2 (08:56→20:58)
[2022-08-23] MEDS: Anastrozole 1 MG TAB PO SCH (08:56)
[2022-08-23] MEDS: Potassium Chloride 20 MEQ TAB PO SCH ×4 (08:56→20:58)
[2022-08-23] MEDS: Cyanocobalamin (Vitamin B-12) 1,000 MCG TAB PO SCH (08:56)
[2022-08-23] MEDS ORDERED: Enoxaparin Sodium 40 MG/0.4 ML SYRINGE SC SCH (09:00)
[2022-08-23] MEDS: Carvedilol 6.25 MG TAB PO SCH (16:16)
[2022-08-23] MEDS: Famotidine 20 MG TAB PO SCH (20:58)
[2022-08-23] MEDS: Losartan 25 MG TAB PO SCH (20:58)
[2022-08-23] MEDS: Latanoprost 0.005% Ophth Soln 2.5 ml Bottle EA EYE SCH (20:59)
[2022-08-24] MEDS: Levothyroxine Sodium 100 MCG TAB PO SCH (06:03)
[2022-08-24 06:15] LABS: #Basophils 0.1 thou/uL (0.0-0.2); #Eosinphils 0.1 thou/uL (0.0-0.7); #Lymphocytes 1.9 thou/uL (1.20-3.40); #Monocytes 1.7 thou/uL (0.11-0.59); #Neutrophils 8.9 thou/uL (1.40-6.50); %Basophils 0.4 % (0.0-1.0); %Monocytes 13.5 % (0.0-10.0); Hemoglobin 13.5 g/dL (12.0-16.0); Mean Corpuscular HGB CONC 33.6 g/dL (32.0-36.0); Mean Corpuscular Volume 92.2 fL (78.0-98.0); Mean Platelet Volume 6.6 fL (7.4-10.4); Platelet Count 223 thou/uL (130-400); RBC Distribution Width 11.8 % (11.5-14.5); Red Blood Cell (RBC) Count 4.36 mill/uL (4.20-5.40); White Blood Cell (WBC) Count 12.7 thou/uL (4.8-10.8)
[2022-08-24 06:32] LABS: Anion Gap 14 mmol/L (10-20); BUN (Urea Nitrogen) 15 mg/dL (9.8-20.1); Calc. Creatinine Clearance 51 mL/min (70-130); Carbon Dioxide 23 mmol/L (23-31); Chloride 100 mmol/L (98-107); Estimated GFR 72; Glucose 133 mg/dL (83-110); Potassium 3.8 mmol/L (3.5-5.1); Sodium 133 mmol/L (136-145)
[2022-08-24] MEDS: Calcium Carbonate 600 MG TAB PO SCH ×2 (08:33→21:19)
[2022-08-24] MEDS: Folic Acid 1 MG TAB PO SCH (08:33)
[2022-08-24] MEDS: Aspirin 81 mg Enteric Coated Tablet PO SCH (08:34)
[2022-08-24] MEDS: Multivit, Therapeutic 1 TAB PO SCH (08:34)
[2022-08-24] MEDS: Carvedilol 6.25 MG TAB PO SCH ×2 (08:34→17:46)
[2022-08-24] MEDS: Cyanocobalamin (Vitamin B-12) 1,000 MCG TAB PO SCH (08:34)
[2022-08-24] MEDS: Anastrozole 1 MG TAB PO SCH (08:34)
[2022-08-24] MEDS: Potassium Chloride 20 MEQ TAB PO SCH ×4 (08:34→21:20)
[2022-08-24] MEDS: Acetaminophen 325 MG TAB PO PRN (08:38)
[2022-08-24] MEDS ORDERED: Piperacillin/Tazobactam 3.375 GM in Sodium Chloride 0.9% 100 ML IVPB SCH ×2 (09:45→14:00)
[2022-08-24] MEDS ORDERED: Vancomycin 1 GM in Premix Bag 1 BAG IVPB SCH (09:45)
[2022-08-24] MEDS: Vancomycin 1 GM in Premix Bag 1 BAG IVPB SCH (11:28)
[2022-08-24 12:48] LABS: Bacteria/HPF None Seen HPF (None Seen); Bilirubin Negative (Negative); Blood, Urine Trace (Negative); Clarity Clear (Clear); Glucose, Urine (Dipstick) Normal (Negative); Ketone, Urine 10 mg/dL (Negative); Leukocyte Negative Leu/uL (Negative); Nitrite Negative (Negative); Protein, Urine (Dipstick) Negative (Neg-Trace); Specific Gravity, Urine 1.019 (1.002-1.036); Squamous Epithelial 0-3 HPF (0-3); Urobilinogen Normal mg/dL (Less than 2); WBC/HPF 0-3 HPF (0-3); pH, Urine 5.5 (5.0-9.0)
[2022-08-24 12:50] LABS: Urine Culture Reflex No No
[2022-08-24 13:14] LABS: SARS-CoV-2 NAA Rapid Test Not Detected (NotDetected)
[2022-08-24] MEDS: Losartan 25 MG TAB PO SCH (21:19)
[2022-08-24] MEDS: Famotidine 20 MG TAB PO SCH (21:19)
[2022-08-24] MEDS: Piperacillin/Tazobactam 3.375 GM in Sodium Chloride 0.9% 100 ML IVPB SCH (21:25)
[2022-08-24] MEDS: Latanoprost 0.005% Ophth Soln 2.5 ml Bottle EA EYE SCH (21:32)
[2022-08-25] MEDS: Acetaminophen 325 MG TAB PO PRN ×2 (00:40→08:32)
[2022-08-25] MEDS: hydrALAZINE 20 MG/ML VIAL SLOW IVP PRN (03:53)
[2022-08-25 04:35] LABS: #Eosinphils 0.2 thou/uL (0.0-0.7); #Lymphocytes 1.4 thou/uL (1.20-3.40); #Monocytes 1.7 thou/uL (0.11-0.59); #Neutrophils 10.1 thou/uL (1.40-6.50); %Basophils 0.3 % (0.0-1.0); %Eosinophils 1.2 % (0.0-10.0); %Lymphocytes 10.2 % (21.0-51.0); %Monocytes 12.6 % (0.0-10.0); %Neutrophils 75.8 % (42.0-75.0); Mean Corpuscular HGB CONC 33.2 g/dL (32.0-36.0); Mean Corpuscular Hemoglobin 30.9 pg (27.0-31.0); Mean Corpuscular Volume 93.2 fL (78.0-98.0); Mean Platelet Volume 6.9 fL (7.4-10.4); Platelet Count 201 thou/uL (130-400); RBC Distribution Width 11.8 % (11.5-14.5); Red Blood Cell (RBC) Count 4.21 mill/uL (4.20-5.40); White Blood Cell (WBC) Count 13.3 thou/uL (4.8-10.8)
[2022-08-25 04:58] LABS: Anion Gap 14 mmol/L (10-20); BUN (Urea Nitrogen) 17 mg/dL (9.8-20.1); Calc. Creatinine Clearance 57 mL/min (70-130); Calcium 9.7 mg/dL (7.8-10.44); Carbon Dioxide 21 mmol/L (23-31); Chloride 102 mmol/L (98-107); Estimated GFR 82; Glucose 127 mg/dL (83-110); Potassium 4.1 mmol/L (3.5-5.1); Sodium 133 mmol/L (136-145)
[2022-08-25] MEDS: Piperacillin/Tazobactam 3.375 GM in Sodium Chloride 0.9% 100 ML IVPB SCH ×2 (05:46→14:28)
[2022-08-25] MEDS: Levothyroxine Sodium 100 MCG TAB PO SCH (05:46)
[2022-08-25] MEDS: Cyanocobalamin (Vitamin B-12) 1,000 MCG TAB PO SCH (08:32)
[2022-08-25] MEDS: Carvedilol 6.25 MG TAB PO SCH ×2 (08:32→16:16)
[2022-08-25] MEDS: Anastrozole 1 MG TAB PO SCH (08:32)
[2022-08-25] MEDS: Calcium Carbonate 600 MG TAB PO SCH (08:32)
[2022-08-25] MEDS: Folic Acid 1 MG TAB PO SCH (08:32)
[2022-08-25] MEDS: Aspirin 81 mg Enteric Coated Tablet PO SCH (08:32)
[2022-08-25] MEDS: Potassium Chloride 20 MEQ TAB PO SCH ×3 (08:33→16:17)
[2022-08-25] MEDS: Multivit, Therapeutic 1 TAB PO SCH (08:33)
[2022-08-25] MEDS ORDERED: Enoxaparin Sodium 40 MG/0.4 ML SYRINGE SC SCH (09:00)
[2022-08-25] MEDS ORDERED: Ibuprofen 600 MG TAB PO SCH (09:26)
[2022-08-25] MEDS ORDERED: Ibuprofen 600 MG TAB PO PRN (09:27)
[2022-08-25] MEDS ORDERED: Colchicine 0.6 MG TAB PO SCH ×2 (10:30→12:30)
[2022-08-25] MEDS: Vancomycin 1 GM in Premix Bag 1 BAG IVPB SCH (11:40)
[2022-08-25 16:26] VITALS: BP 112/54; TEMP 97.8
[2022-08-26] MEDS ORDERED: Colchicine 0.6 MG TAB PO SCH (09:00)
== END 2022-08-25 17:30 | disposition home or self-care (01) | DRG 243 ==
LOC: ERS 10:13 → ERHOLD 11:46 → 2NO 15:25
PROVIDERS: ADMIT Emergency Medicine; ATTEND Hospitalist
PROC: 02583ZZ Destruction of Conduction Mechanism, Percutaneous Approach (ICD-10-PCS; principal; 2022-08-22)
PROC: 4A023FZ Measurement of Cardiac Rhythm, Percutaneous Approach (ICD-10-PCS; 2022-08-22)
PROC: 4A0234Z Measurement of Cardiac Electrical Activity, Percutaneous Approach (ICD-10-PCS; 2022-08-22)
PROC: 0JH606Z Insertion of Pacemaker, Dual Chamber into Chest Subcutaneous Tissue and Fascia, Open Approach (ICD-10-PCS; 2022-08-22)
PROC: 02H63JZ Insertion of Pacemaker Lead into Right Atrium, Percutaneous Approach (ICD-10-PCS; 2022-08-22)
PROC: 02HK3JZ Insertion of Pacemaker Lead into Right Ventricle, Percutaneous Approach (ICD-10-PCS; 2022-08-22)
DX: I47.1 Supraventricular tachycardia (principal); N17.9 Acute kidney failure, unspecified; Z66 Do not resuscitate; Z20.822 Contact with and (suspected) exposure to COVID-19; I44.2 Atrioventricular block, complete; I10 Essential (primary) hypertension; K21.9 Gastro-esophageal reflux disease without esophagitis; E03.9 Hypothyroidism, unspecified; I44.7 Left bundle-branch block, unspecified; I08.3 Combined rheumatic disorders of mitral, aortic and tricuspid valves; M10.9 Gout, unspecified; Z28.21 Immunization not carried out because of patient refusal; Z85.3 Personal history of malignant neoplasm of breast; Z79.899 Other long term (current) drug therapy; Z79.82 Long term (current) use of aspirin; Z79.890 Hormone replacement therapy; Z98.890 Other specified postprocedural states
CPT/HCPCS: 33208; 36415; 71045; 71275; 80048; 80053; 80061; 81001; 81003; 82550; 83036; 83690; 83735; 83880; 84100; 84145; 84443; 84484; 84550; 85025; 85379; 87040; 93005; 93010; 93306; 93613; 93620; 93621; 96361; 96372; 96374; 96375; C1731; C1760; C1769; C1785; C1894; C1898; J0360; J0690; J1580; J1644; J1650; J2370; J2543; J2704; J3370; J3475; J3490; J7120; Q9967; U0003; U0005

== ENCOUNTER 2022-10-23 13:40 | Outpatient (CLI) | payer MEDICARE | END 2022-10-23 13:41 | disposition home or self-care (01) | LOC: BICMAMMO 13:40 | PROVIDERS: ATTEND Internal Medicine Medical Oncology | DX: Z13.820 Encounter for screening for osteoporosis (principal); Z08 Encounter for follow-up examination after completed treatment for malignant neoplasm; T38.6X5D Adverse effect of antigonadotrophins, antiestrogens, antiandrogens, not elsewhere classified, subsequent encounter; Z85.3 Personal history of malignant neoplasm of breast | CPT/HCPCS: 77066; 77080; G0279 ==

== ENCOUNTER 2023-10-08 08:46 | Emergency (ER) | payer MEDICARE ==
[2023-10-08] MEDS ORDERED: Ketorolac Tromethamine 30 MG/ML VIAL ONE (09:53)
== END 2023-10-08 10:52 | disposition home or self-care (01) ==
LOC: ERS 08:46
DX: M79.621 Pain in right upper arm (principal); I10 Essential (primary) hypertension; M25.511 Pain in right shoulder; M54.6 Pain in thoracic spine
CPT/HCPCS: 93005; 96372; J1885

== ENCOUNTER 2023-10-24 08:54 | Outpatient (CLI) | payer MEDICARE | END 2023-10-24 08:55 | disposition home or self-care (01) | LOC: BICMAMMO 08:54 | PROVIDERS: ATTEND Internal Medicine | DX: Z08 Encounter for follow-up examination after completed treatment for malignant neoplasm (principal); Z85.3 Personal history of malignant neoplasm of breast | CPT/HCPCS: 77066; G0279 ==

== ENCOUNTER 2024-04-24 14:10 | Outpatient (CLI) | payer MEDICARE | END 2024-04-24 14:11 | disposition home or self-care (01) | LOC: BICMAMMO 14:10 | PROVIDERS: ATTEND Internal Medicine | DX: Z13.820 Encounter for screening for osteoporosis (principal); C50.412 Malignant neoplasm of upper-outer quadrant of left female breast; M85.88 Other specified disorders of bone density and structure, other site | CPT/HCPCS: 77080 ==

== ENCOUNTER 2024-05-13 16:28 | Outpatient (CLI) | payer MEDICARE | END 2024-05-13 16:29 | disposition home or self-care (01) | LOC: SCSRAD 16:28 | PROVIDERS: ATTEND Family Medicine | DX: R05.9 Cough, unspecified (principal) | CPT/HCPCS: 71046 ==

== ENCOUNTER 2024-10-29 13:06 | Outpatient (CLI) | payer MEDICARE | END 2024-10-29 13:07 | disposition home or self-care (01) | LOC: BICMAMMO 13:06 | PROVIDERS: ATTEND Internal Medicine | DX: Z08 Encounter for follow-up examination after completed treatment for malignant neoplasm (principal); Z85.3 Personal history of malignant neoplasm of breast | CPT/HCPCS: 77066; G0279 ==